=== PATIENT | male | born 1990 | race American Indian/Alaskan Native ===

== ENCOUNTER 2020-07-19 18:15 | Emergency (ER) | payer MEDICAID ==
[2020-07-19] MEDS ORDERED: ACETAMINOPHEN 325 MG TAB PO ONE (18:21)
[2020-07-19] MEDS ORDERED: ACETAMINOPHEN 325 MG TAB ONE (18:21)
--- NOTE | 2020-07-19 18:51 | Event Note ---
ED Screening Note Date of service: 07/19/20 Time: 18:22 ED Screening Note: Pt c/o cough, chest pain, bodyaches, and SOB x yesterday hx of HIV-not currently on antiretrovirals temp 103, tachy at 113 This initial assessment/diagnostic orders/clinical plan/treatment(s) is/are subject to change based on patients health status, clinical progression and re- assessment by fellow clinical providers in the ED. Further treatment and workup at subsequent clinical providers discretion. Patient/guardian urged not to elope from the ED as their condition may be serious if not clinically assessed and managed. Initial orders include: labs xr
--- NOTE | 2020-07-19 18:56 | XRay Report ---
CHEST PA AND LATERAL VIEWS INDICATION: chest pain. COMPARISON: None FINDINGS: Support devices: None Heart: Normal Lungs/Pleura: No acute pulmonary or pleural findings. IMPRESSION: 1. No significant abnormality. Signer Name: Lance Mccall MD Signed: 07/19/2020 6:52 PM Workstation Name: [id number]
[2020-07-19 19:08] LABS: Alanine Aminotransferase 15 units/L (7-56); Albumin 4.4 g/dL (3.9-5); Basophils % (Auto) 0.2 % (0.0-1.8); Hematocrit 45.6 % (35.5-45.6); Hemoglobin 15.5 gm/dl (11.8-15.2); Lymphocytes # (Auto) 1.1 K/mm3 (1.2-5.4); Lymphocytes % (Auto) 16.5 % (13.4-35.0); Mean Corpuscular HGB Conc 34 % (32-34); Mean Corpuscular Volume 93 fl (84-94); Monocytes # (Auto) 0.8 K/mm3 (0.0-0.8); Monocytes % (Auto) 11.3 % (0.0-7.3); Platelet Count 253 K/mm3 (140-440); Red Blood Count 4.93 M/mm3 (3.65-5.03); Red Cell Distribution Width 13.3 % (13.2-15.2)
[2020-07-19 19:31] LABS: BUN/Creatinine Ratio 8; Blood Urea Nitrogen 9 mg/dL (9-20); Calcium 9.2 mg/dL (8.4-10.2); Hemolysis Index 19
--- NOTE | 2020-07-19 20:06 | Emergency Department Report ---
- General Chief Complaint: Chest Pain Stated Complaint: CHEST PAIN;HEADACHE Time Seen by Provider: 07/19/20 18:21 Source: patient Mode of arrival: Ambulatory Limitations: No Limitations - History of Present Illness Initial Comments: Patient is a 29-year-old male presents emergency room complaints of URI symptoms that began yesterday. He has associated chest congestion, dry cough, chest discomfort after frequent coughing, fever, generalized body aches, chills. He denies any nausea, vomiting, diarrhea, shortness of breath, abdominal pain. He denies any known sick contacts or recent travel. Past medical history of HIV and reports that he is on his antivirals, he is unsure of his CD4 count but states that he is undetectable. - Related Data Home Medications Medication Instructions Recorded Confirmed Last Taken Emtricitab/Rilpiviri/Tenof Ala 1 each PO DAILY 12/06/16 12/08/16 12/06/16 [Odefsey Tablet] Previous Rx's Medication Instructions Recorded Last Taken Type Amoxicillin/K Clav Tab [Augmentin 1 tab PO Q12HR #28 tab 12/09/16 Unknown Rx 875 mg] oxyCODONE /ACETAMINOPHEN [Percocet 1 tab PO Q6H PRN #30 tablet 12/09/16 Unknown Rx 5/325 mg] Azithromycin [Zithromax Z-MADI] 250 mg PO DAILY 5 Days #6 tablet 07/19/20 Unknown Rx Prednisone [predniSONE 10 mg 10 mg PO .TAPER #1 tab.ds.pk 07/19/20 Unknown Rx (6-Day Pack, 21 Tabs)] guaiFENesin ER [Mucinex ER] 600 mg PO BID #14 tablet.er 07/19/20 Unknown Rx Allergies Allergy/AdvReac Type Severity Reaction Status Date / Time No Known Allergies Allergy Verified 12/06/16 21:14 ED Review of Systems ROS: Stated complaint: CHEST PAIN;HEADACHE Other details as noted in HPI Comment: All other systems reviewed and negative ED Past Medical Hx - Past Medical History Previous Medical History?: Yes Hx Congestive Heart Failure: No Hx Diabetes: No Hx Asthma: No Hx COPD: No Hx HIV: Yes - Surgical History Past Surgical History?: No - Social History Smoking Status: Never Smoker Substance Use Type: None - Medications Home Medications: Home Medications Medication Instructions Recorded Confirmed Last Taken Type Emtricitab/Rilpiviri/Tenof Ala 1 each PO DAILY 12/06/16 12/08/16 12/06/16 History [Odefsey Tablet] Amoxicillin/K Clav Tab [Augmentin 1 tab PO Q12HR #28 tab 12/09/16 Unknown Rx 875 mg] oxyCODONE /ACETAMINOPHEN [Percocet 1 tab PO Q6H PRN #30 tablet 12/09/16 Unknown Rx 5/325 mg] Azithromycin [Zithromax Z-MADI] 250 mg PO DAILY 5 Days #6 tablet 07/19/20 Unknown Rx Prednisone [predniSONE 10 mg 10 mg PO .TAPER #1 tab.ds.pk 07/19/20 Unknown Rx (6-Day Pack, 21 Tabs)] guaiFENesin ER [Mucinex ER] 600 mg PO BID #14 tablet.er 07/19/20 Unknown Rx ED Physical Exam - General Limitations: No Limitations General appearance: alert, in no apparent distress - Head Head exam: Present: atraumatic, normocephalic - Eye Eye exam: Present: normal appearance - ENT ENT exam: Present: mucous membranes moist - Respiratory Respiratory exam: Present: normal lung sounds bilaterally. Absent: respiratory distress, wheezes, rales, rhonchi, stridor, chest wall tenderness, accessory muscle use, decreased breath sounds, prolonged expiratory - Cardiovascular Cardiovascular Exam: Present: regular rate, normal rhythm, normal heart sounds. Absent: systolic murmur, diastolic murmur, rubs, gallop - Neurological Exam Neurological exam: Present: alert, oriented X3 - Psychiatric Psychiatric exam: Present: normal affect, normal mood - Skin Skin exam: Present: warm, dry, intact ED Course Vital Signs 07/19/20 07/19/20 18:21 20:13 Temperature 103.0 F H 99.9 F H Pulse Rate 114 H 96 H Respiratory 18 18 Rate Blood Pressure 123/72 Blood Pressure 122/78 [Left] O2 Sat by Pulse 98 100 Oximetry ED Medical Decision Making - Lab Data Result diagrams: 07/19/20 18:33 07/19/20 18:33 Lab Results 07/19/20 07/19/20 07/19/20 Range/Units 18:33 18:33 18:33 WBC 6.9 (4.5-11.0) K/mm3 RBC 4.93 (3.65-5.03) M/mm3 Hgb 15.5 H (11.8-15.2) gm/dl Hct 45.6 (35.5-45.6) % MCV 93 (84-94) fl MCH 31 (28-32) pg MCHC 34 (32-34) % RDW 13.3 (13.2-15.2) % Plt Count 253 (140-440) K/mm3 Lymph % (Auto) 16.5 (13.4-35.0) % [place] % (Auto) 11.3 H (0.0-7.3) % Eos % (Auto) 0.0 (0.0-4.3) % Baso % (Auto) 0.2 (0.0-1.8) % Lymph # (Auto) 1.1 L (1.2-5.4) K/mm3 [place] # (Auto) 0.8 (0.0-0.8) K/mm3 Eos # (Auto) 0.0 (0.0-0.4) K/mm3 Baso # (Auto) 0.0 (0.0-0.1) K/mm3 Seg Neutrophils % 72.0 H (40.0-70.0) % Seg Neutrophils # 5.0 (1.8-7.7) K/mm3 Sodium 133 L (137-145) mmol/L Potassium 3.7 (3.6-5.0) mmol/L Chloride 97.3 L (98-107) mmol/L Carbon Dioxide 30 (22-30) mmol/L Anion Gap 9 mmol/L BUN 9 (9-20) mg/dL Creatinine 1.2 (0.8-1.3) mg/dL Estimated GFR > 60 ml/min BUN/Creatinine Ratio 8 % Glucose 123 H (75-100) mg/dL Lactic Acid 0.60 L (0.7-2.0) mmol/L Calcium 9.2 (8.4-10.2) mg/dL Total Bilirubin 1.20 (0.1-1.2) mg/dL AST 42 H (5-40) units/L ALT 15 (7-56) units/L Alkaline Phosphatase 73 (35-129) units/L Total Protein 7.9 (6.3-8.2) g/dL Albumin 4.4 (3.9-5) g/dL Albumin/Globulin Ratio 1.3 % Vital Signs 07/19/20 07/19/20 18:21 20:13 Temperature 103.0 F H 99.9 F H Pulse Rate 114 H 96 H Respiratory 18 18 Rate Blood Pressure 123/72 Blood Pressure 122/78 [Left] O2 Sat by Pulse 98 100 Oximetry - Radiology Data Radiology results: report reviewed Ordering Physician: KATTY DIMAS Date of Service: 07/19/20 Procedure(s): XR chest routine 2V Accession Number(s): [id number] cc: KATTY DIMAS Fluoro Time In Minutes: CHEST PA AND LATERAL VIEWS INDICATION: chest pain. COMPARISON: None FINDINGS: Support devices: None Heart: Normal Lungs/Pleura: No acute pulmonary or pleural findings. IMPRESSION: 1. No significant abnormality. Signer Name: Lance Mccall MD Signed: 07/19/2020 6:52 PM Workstation Name: [id number] Transcribed By: TM Dictated By: Lance Mccall MD Electronically Authenticated By: Lance Mccall MD Signed Date/Time: 07/19/201851 DD/ 51 TD/TT: - Medical Decision Making Patient is a 29-year-old male presents emergency room complaints of URI symptoms that began yesterday. He has associated chest congestion, dry cough, chest discomfort after frequent coughing, fever, generalized body aches, chills. He denies any nausea, vomiting, diarrhea, shortness of breath, abdominal pain. He denies any known sick contacts or recent travel. Past medical history of HIV and reports that he is on his antivirals, he is unsure of his CD4 count but s tates that he is undetectable. Initial vitals with fever and elevated heart rate which improved to normal upon repeat. Breath sounds are clear bilaterally, no wheezing, no rales, no rhonchi. Labs are stable. Chest x-ray 1. No significant abnormality. Discussed all results with patient answered questions. Patient is presenting with the symptoms during COVID-19 pandemic, discussed COVID-19 with patient, discussed return precautions, discussed outpatient testing, discussed self quarantine. Patient has no hypoxia. Patient does not meet hospital criteria for COVID-19 admission or for COVID-19 hospital testing. Patient given prescription for erythromycin, prednisone, Mucinex given patient 's history of being immunocompromised secondary to HIV. Advised patient Please take medication as prescribed. Please increase your fluid intake over the next several days. May take Tylenol as needed for fever or body aches. Follow-up with a primary care doctor for reexamination. Return to emergency room immediately for any new or worsening symptoms including but not limited to difficulty breathing, shortness of breath, severe chest pain, unable to tolerate by mouth intake, etc. Please self quarantine for 10 days from the onset of your symptoms. Please do not go out in public. If you are around others at home please wear a mask. If you need to cough or sneeze please do so in a napki n and immediately throw it away and immediately wash your hands. Wash your hands frequently. Wipe everything down. Recommend for you to get COVID-19 testing, may have this done at primary care doctor, health department, [facility], etc - Differential Diagnosis PNA, URI, COVID-19, viral syndrome, acute bronchitis Critical care attestation.: If time is entered above; I have spent that time in minutes in the direct care of this critically ill patient, excluding procedure time. ED Disposition Clinical Impression: Viral URI, Suspected COVID-19 virus infection Disposition: TO HOME OR SELFCARE Is pt being admited?: No Does the pt Need Aspirin: No Condition: Stable Instructions: COVID-19, Upper Respiratory Infection, Adult, [id number], COVID-19: How to Protect Yourself and Others - CDC Additional Instructions: Please take medication as prescribed. Please increase your fluid intake over the next several days. May take Tylenol as needed for fever or body aches. Follow-up with a primary care doctor for reexamination. Return to emergency r oom immediately for any new or worsening symptoms including but not limited to difficulty breathing, shortness of breath, severe chest pain, unable to tolerate by mouth intake, etc. Please self quarantine for 10 days from the onset of your symptoms. Please do not go out in public. If you are around others at home please wear a mask. If you need to cough or sneeze please do so in a napkin and immediately throw it away and immediately wash your hands. Wash your hands frequently. Wipe everything down. Recommend for you to get COVID-19 testing, may have this done at primary care doctor, health department, [facility], etc Prescriptions: guaiFENesin ER [Mucinex ER] 600 mg PO BID #14 tablet.er Prednisone [predniSONE 10 mg (6-Day Pack, 21 Tabs)] 10 mg PO .TAPER #1 tab.ds.pk Azithromycin [Zithromax Z-MADI] 250 mg PO DAILY 5 Days #6 tablet Referrals: PRIMARY CAREMD [Primary Care Provider] - 2-3 Days OMAR WHITE MD [Staff Physician] - 2-3 Days [facility] [Provider Group] - 2-3 Days Forms: Work/School Release Form(ED) Time of Disposition: 20:04 Print Language: SPANISH
[2020-07-19 20:14] VITALS: BP 122/78
== END 2020-07-19 20:18 | disposition home or self-care (01) ==
LOC: ED 18:15
DX: J06.9 Acute upper respiratory infection, unspecified (principal); B97.89 Other viral agents as the cause of diseases classified elsewhere; Z20.828 Contact with and (suspected) exposure to other viral communicable diseases; Z79.2 Long term (current) use of antibiotics; Z79.899 Other long term (current) drug therapy; Z21 Asymptomatic human immunodeficiency virus [HIV] infection status
CPT/HCPCS: 36415; 71046; 80053; 82140; 85025